=== PATIENT | male | born 1955 | race Caucasian/White ===

== ENCOUNTER → 2020-12-23 | Outpatient (CLI) | payer MEDICARE ==
[~2020-12-23] MED LIST: ADVAIR 500-501 EACH INH; ASA81BEC PO; BENICAR20 MG PO; CO-ENZYME Q-1010 MG PO; FAMOTIDINE 10 M10 MG PO; FISH OIL 1,0001 EAC9 PO; FLONASE 0.05%50 MCG NASAL; KRILL OIL500 MG PO; MELOXICAM15 MG PO; PROAIR HFA8.5 GM INH; SINGULAIR 10 MG10 MG PO; VIAGRA100 MG PO; VITAMIN B-121000 MC2 PO; VITAMIN D31250 MCG PO
[2020-12-23 09:14] LABS: HEMATOCRIT 43.5 % (42.0-52.0); HEMOGLOBIN 14.8 gm/dL (14.0-18.0); MCH 33.4 pg (26.0-34.0); MCV 98.3 fL (80.0-100.0); MPV 8.4 fl. (7.2-11.1); RBC 4.43 mil/uL (4.50-6.00); RDW-CV 12.4 % (10.5-14.5); WBC 9.8 thou/uL (4.0-11.0)
[2020-12-23 09:41] LABS: ALBUMIN 3.3 g/dL (3.4-5.0); CALCIUM 8.5 mg/dL (8.5-10.1); CREATININE 1.1 mg/dL (0.6-1.3); POTASSIUM 3.8 mmol/L (3.5-5.1); TOTAL BILIRUBIN 0.7 mg/dL (<0.1-1.0); TOTAL PROTEIN 6.5 g/dL (6.4-8.2)
--- NOTE | 2020-12-23 09:41 | EKG ---
[place] [address] ELECTROCARDIOGRAM REPORT Name: ANASTACIO SINGLETON CHRISTOPHER Room: [facility]#: [id number] Admission: 12/23/20 Attend Phys: Nadir Silva MD Discharge: Date of : 51 Date of Service: 12/23/20918 Report #: [id number] THIS REPORT FOR: //name// [facility] Test Date: 2020-12-23 Test Time: 09:19:04 Pat Name: ANASTACIO SINGLETON Department: Room: Gender: Service Coordinator Elderly Facility: LUISA : 1955 Requested By: Nadir iSlva Order Number: [id number] John MD: Nadir Silva Measurements Intervals [place] Rate: 32 P: 56 [place]: QRS: -120 QRSD: 188 T: 30 QT: 653 QTc: 477 Interpretive Statements Complete AV block with wide QRS complex Right bundle branch block No previous ECG available for comparison Electronically Signed On 12-23-2020 9:41:24 HIGH DENSITY FINISHING OPERATOR by Nadir Silva [email or web address] <ELECTRONICALLY SIGNED> By: Nadir Silva MD, [facility] 12/23/2041 8 8 Nadir Silva MD, [facility] /EPI
[2020-12-23 09:48] VITALS: BP 180/70
[2020-12-23 10:01] LABS: APTT 25.9 Seconds (25.0-31.3); INR 1.1; PROTIME 11.1 Seconds (9.20-11.50)
[2020-12-23 12:43] VITALS: BP 144/74
[2020-12-23 12:58] VITALS: BP 144/74
--- NOTE | 2020-12-23 14:09 | EKG ---
[place] [address] ELECTROCARDIOGRAM REPORT Name: ANASTACIO SINGLETON CHRISTOPHER Room: [facility]#: [id number] Admission: 12/23/20 Attend Phys: Nadir Silva MD Discharge: Date of : 51 Date of Service: 12/23/20 1317 Report #: [id number] THIS REPORT FOR: //name// [facility] Test Date: 2020-12-23 Test Time: 13:17:34 Pat Name: ANASTACIO SINGLETON Department: Room: Gender: Licensed Final Expense Agents: : 1955 Requested By: Nadir Silva Order Number: [id number] Reading MD: Nadir Silva Measurements Intervals [place] Rate: 68 P: 50 OR: 179 QRS: -65 QRSD: 187 T: 77 QT: 532 QTc: 566 Interpretive Statements Atrial-sensed ventricular-paced rhythm No further analysis attempted due to paced rhythm Compared to ECG 12/23/2020 09:19:04 AV block, complete (third-degree) no longer present Electronically Signed On 12-23-2020 14:09:35 INDUSTRIAL MACHINE OPERATOR by Nadir Silva [email or web address] <ELECTRONICALLY SIGNED> By: Nadir Silva MD, [facility] 12/23/20 1409 1317 1317 Nadir Silva MD, [facility] /EPI
--- NOTE | 2020-12-23 14:09 | EKG ---
[place] [address] ELECTROCARDIOGRAM REPORT Name: MANIANASTACIO CHRISTOPHER Room: [facility]#: [id number] Admission: 12/23/20 Attend Phys: Nadir Silva MD Discharge: Date of : 51 Date of Service: 12/23/20 1322 Report #: [id number] THIS REPORT FOR: //name// [facility] Test Date: 2020-12-23 Test Time: 13:22:15 Pat Name: ANASTACIO SINGLETON Department: Room: Gender: Garage Attendant: : 1955 Requested By: Nadir Silva Order Number: [id number] Reading MD: Nadir Silva Measurements Intervals [place] Rate: 68 P: 53 VT: 181 QRS: -62 QRSD: 185 T: 77 QT: 544 QTc: 579 Interpretive Statements Atrial-sensed ventricular-paced rhythm No further analysis attempted due to paced rhythm Compared to ECG 12/23/2020 13:17:34 No significant changes Electronically Signed On 12-23-2020 14:09:50 [place] by Nadir Silva [email or web address] <ELECTRONICALLY SIGNED> By: Nadir Silva MD, FACC 12/23/20 1409 1322 1322 Nadir Silva MD, [facility] /EPI
--- NOTE | 2020-12-23 14:45 | CARD ---
[address] [address] CARDIAC CATH REPORT Name: ANASTACIO SINGLETON Room: [facility] Rachael.#: [id number] Admission: 12/23/20 Attend Phys: Nadir Silva MD, F Discharge: Date of : 51 Report #: [id number] THIS REPORT FOR: cc: Nadir Winchester David J. DO Blick, David R. MD [facility] ~ APPROVED REPORT Study performed: 12/23/2020 10:05:57 Patient Status: Out-Patient Room #: Exam: Insertion of Dual Chamber Permanent Pacemaker Indications: Complete Heart Block The patient is a 65 year-old male with a history of Complete Heart Block. Patient Info BUN: 25 Creatine: 1.1 Conscious Sedation Start time: 1051 End Time: 1210 Fentanyl 125.0 mcg Versed 5.0 mg 10 mg Hydrolazine, 87ml Lidocaine with Epinepherine Implanted Devices: Edora 8 PATRICIA BIO-TRONIC SN- [id number] Solia S 53 BIO-TRONIC SN- [id number] Solia S 60 BIO-TRONIC SN [id number] Procedure The patient underwent informed consent. We discussed the details of the procedure including the risks, which include, but not limited to bleeding, infection, vascular damage, cardiac perforation, and pneumothorax. He understood these risks and was willing to proceed. As such, he was brought to the EP/Cardiac Catheterization laboratory in a fasting and sedated state and prepped and draped in a sterile fashion, received IV antibiotics prior to initiation of the procedure and a venogram was performed showing patency of the left axillary vein. The patient underwent conscious sedation, with no related complications. The patient was brought to the EP/Cardiac Catheterization laboratory and the left chest and shoulder were prepped and [place] [address] CARDIAC CATH REPORT Name: ANASTACIO SINGLETON Room: [facility]#: [id number] Admission: 12/23/20 Attend Phys: Nadir Silva MD, F Discharge: Date of : 51 Report #: [id number] During this case, Fluoroscopy and low osmolar contrast were used for imaging. IV conscious sedation was used throughout procedure with appropriate monitoring and was performed in the presence of a registered nurse who was an independent trained observer other than the physician performing the procedure. The left subclavian region was infiltrated with 2% Lidocaine with Epinephrine subcutaneous anesthesia. A transverse incision was made in the left upper chest cavity. The subcutaneous pocket was formed via blunt dissection. Percutaneous venous access was achieved and an introducer sheath was inserted into the left Subclavian vein. Sheaths were positions using the modified Seldinger technique Through the introducer sheaths the atrial and ventricular lead wires were positioned in the right atrial appendage and right ventricular apex respectively. Utilizing fluoroscopic guidance, the atrial and ventricular lead wires were advanced over the wires and positioned in the right atria and right ventricle respectively. Capturing and sensing thresholds were verified. Electrode Parameters P Wave: 3.5 mv R Wave: 9.8 mv Atrial Threshold: 0.6 v @ 0.4 ms Ventricular Threshold: 0.5 v @ 0.4 ms Atrial Resistance: 555 ohm Ventricular Resistance: 870 ohm Dual Chamber The atrial and ventricular leads were then secured using 0 silk sutures. The subcutaneous pocket was irrigated with ancef antibiotic solution.The atrial and ventricular leads were attached to the appropriate receptacles on the pulse generator and set screws firmly tightened to insure adequate contact and stability. The lead and pulse generator were placed into the subcutaneous pocket. Sharp and sponge counts were confirmed to be correct. At this time the pocket was closed subcutaneously with a 0 Vicryl, 2.0 Vicryl and the skin was closed with a 4.0 Vicryl. The operative site was dressed in sterile fashion with Dermabond and the patient was transferred to the floor in stable condition. Complications The patient tolerated the procedure well and there were no complications [place] [address] CARDIAC CATH REPORT Name: ANASTACIO SINGLETON Room: [facility] Edilberto#: [id number] Admission: 12/23/20 Attend Phys: Nadir Silva MD, F Discharge: Date of : 51 Report #: [id number] Findings Specimens Removed: N/A Estimated Blood Loss: Minimal Conclusion successful placement of a dual chamber biotronic pacemaker mri compatible generator with ventricular and atrial leads. <ELECTRONICALLY SIGNED> By: Nadir Silva MD, FACC 12/23/20 1444 1444 1444Ddenise Silva MD, FACC /INF
== END | disposition home or self-care (01) ==
LOC: M.CL 08:33
PROVIDERS: ATTEND Internal Medicine Cardiovascular Disease
DX: I44.2 Atrioventricular block, complete (principal); Z98.890 Other specified postprocedural states; Z91.040 Latex allergy status; Z79.899 Other long term (current) drug therapy; Z79.01 Long term (current) use of anticoagulants